=== PATIENT | male | born 1960 | race Caucasian/White ===

== ENCOUNTER 2016-08-01 14:59 | Emergency (ER) | payer MEDICARE ==
[2016-08-01 15:51] LABS: BASO % 0.2 % (0.2-1.2); EOS # 0.3 10_X3_uL (0.0-0.5); EOS % 2.3 % (0.8-7.0); GRAN # 11.1 10_X3_uL (1.8-5.4); GRAN % 75.3 % (34.0-67.9); HEMOGLOBIN 16.4 g/dL (13.7-17.5); LYMPH # 2.3 10_X3_uL (1.3-3.6); LYMPH % 15.6 % (21.8-53.1); MEAN CORPUSCULAR HEMOGLOBIN 32.5 pg (27.0-33.0); MEAN CORPUSCULAR HGB CONC 35.7 g/dL (32.0-36.0); MEAN CORPUSCULAR VOLUME 91.1 fL (79-92); MONO % 6.6 % (5.3-12.2); PLATELET COUNT 208 x10_3/uL (163-337); RED BLOOD COUNT 5.05 x10_6/uL (4.6-6.1); RED CELL DISTRIBUTION WIDTH 12.7 % (11.6-14.4); WHITE BLOOD COUNT 14.8 x10_3/uL (4.2-9.1)
[2016-08-01 17:04] LABS: ERYTHROCYTE SEDIMENTATION RATE 3 mm/hr (0-10)
== END 2016-08-01 17:58 | disposition home or self-care (01) ==
LOC: ER 14:59
PROVIDERS: Internal Medicine
DX: R51 Headache (principal); I10 Essential (primary) hypertension; F17.210 Nicotine dependence, cigarettes, uncomplicated; Z79.899 Other long term (current) drug therapy; Z79.82 Long term (current) use of aspirin
CPT/HCPCS: 36415; 70450; 85025; 85651; 96374; 96375; 96376; 99070; 99284; 99284-25